=== PATIENT | female | born 1980 | race Caucasian/White ===

== ENCOUNTER 2021-12-01 09:52 | Emergency (ER) | payer OTHER ==
[~2021-12-01] VITALS: Ht 172.7 cm; Wt 83.5 kg
[2021-12-01 10:45] LABS: BASOPHIL 0.6 % (0-2); HGB 13.8 g/dl (12.5-16.0); LYMPHOCYTE 28.6 % (15-48); MCH 29.8 pg (25.0-31.0); MCHC 33.7 g/dL (32.0-36.0); MCV 88.6 fL (78.0-100.0); MONOCYTE 4.4 % (0-12); MPV 8.8 fL (6.0-9.5); NRBC 0; PLT 229 K/uL (150-400); RBC 4.63 M/uL (4.20-5.40); RDW 12.1 % (11.5-14.0)
[2021-12-01 10:49] LABS: BILIRUBIN NEGATIVE (NEGATIVE); BLOOD NEGATIVE Ery/uL (NEGATIVE); CLARITY CLEAR (CLEAR); COLOR YELLOW (YELLOW); GLUCOSE (U) NORMAL (NORMAL); LEUKOCYTES NEGATIVE Leu/uL (NEGATIVE); NITRITE NEGATIVE (NEGATIVE); PROTEIN NEGATIVE (NEGATIVE); SPECIFIC GRAVITY 1.025 (1.001-1.030); UROBILINOGEN 0.2 mg/dL (0.2-1.0)
[2021-12-01 11:01] LABS: ALBUMIN 3.9 g/dL (3.4-5.0); BILIRUBIN - TOTAL 0.2 mg/dL (0.2-1.0); BUN/CREAT RATIO (CALC) 20.6 RATIO; CREATININE 0.68 mg/dL (0.51-0.95); GLOBULIN (CALCULATION) 3.7 g/dL; POTASSIUM 4.2 mmol/L (3.5-5.1); TOTAL PROTEIN 7.6 g/dL (6.4-8.2)
[2021-12-01] MEDS ORDERED: KETOROLAC TROME10 MG PO (12:44)
== END 2021-12-01 12:52 | disposition home or self-care (01) ==
LOC: FER 09:52
PROVIDERS: Emergency Medicine
DX: N83.201 Unspecified ovarian cyst, right side (principal); Z88.0 Allergy status to penicillin; Z88.5 Allergy status to narcotic agent; Z28.310 Unvaccinated for COVID-19
CPT/HCPCS: 36415; 80053; 81003; 85025; Q9967